=== PATIENT | female | born 1960 | race Caucasian/White ===

== ENCOUNTER 2024-02-26 08:22 | Outpatient (CLI) | payer MEDICARE ==
[2024-02-26] MEDS ORDERED: Iopamidol 370 76% 100 ML VIAL ONE (12:14)
== END 2024-02-26 08:23 | disposition home or self-care (01) ==
LOC: CT 08:22
PROVIDERS: ATTEND Physician Assistant Medical
DX: K62.89 Other specified diseases of anus and rectum (principal)
CPT/HCPCS: 71260; 74177; 82565; Q9967